=== PATIENT | female | born 1945 | race Caucasian/White ===

== ENCOUNTER 2016-10-13 15:20 | Inpatient (IN) | payer OTHER ==
[~2016-10-13] VITALS: Ht 154.9 cm; Wt 77.6 kg
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
--- NOTE | ~2016-10-13 | EKG ---
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: Shante MADRIGAL : 1945 Requested By: Cristobal Santos Order Number: [id number] MD: Cornelio Higgins Measurements Intervals [place] Rate: 121 P: 82 NM: 158 QRS: 15 QRSD: 79 T: 58 QT: 290 QTc: 412 Interpretive Statements Sinus tachycardia Low voltage, extremity leads No previous ECGs available for comparison Electronically Signed On 10-18-2016 14:10:54 OPTICIANRY TEACHER by Cornelio Higgins [email or web address] <ELECTRONICALLY SIGNED> By: Cornelio Higgins MD, [facility] 10/18/16 1410 20 20 Cornelio Higgins MD, FACC /EPI
--- NOTE | ~2016-10-13 | EKG ---
[place] [address] [facility] [place] [address] ELECTROCARDIOGRAM REPORT Name: BHAVYA VERDE Room #: [facility].R.#: [id number] Admission: Attend Phys: Discharge: Date of : 41 Report #: [id number] THIS REPORT FOR: //name// [facility] ED Test Date: 2016-10-13 Test Time: 15:32:06 Pat Name: BHAVYA VERDE Department: Room: Gender: F Molder Hand: MZOOPanfilo : 1945 Requested By: Juan Vo Order Number: [id number] MD: Chino Delacruz Measurements Intervals [place] Rate: 82 P: 90 AR: 193 QRS: 13 QRSD: 83 T: 65 QT: 352 QTc: 411 Interpretive Statements Sinus rhythm Low voltage, extremity leads No previous ECG available for comparison Electronically Signed On 10-13-2016 16:04:00 COCOA POWDER MIXER OPERATOR by Chino Delacruz [email or web address] <ELECTRONICALLY SIGNED> By: Chino Delacruz MD 10/13/16 1604 1532 1532 Chino Delacruz MD /MIRZA
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
[2016-10-13 15:24] VITALS: BP 141/72
[2016-10-13] MEDS ORDERED: ASPIR 8181 MG PO (15:30)
[2016-10-13 16:39] LABS: ABSOLUTE NEUTROPHILS 11.7 thou/uL (1.4-8.2); BASOPHILS 0.6 % (0.0-2.0); EOSINOPHILS 1.7 % (0.0-3.0); HEMATOCRIT 38.4 % (37.0-47.0); HEMOGLOBIN 12.5 gm/dL (12.0-15.0); LYMPHOCYTES 19.7 % (24.0-44.0); MCH 30.9 pg (26.0-34.0); MCHC 32.5 % (28.0-37.0); MCV 94.9 fL (80.0-100.0); MONOCYTES 7.3 % (1.0-8.0); PLATELET COUNT 370 thou/uL (150-400); POLYS 70.7 % (36.0-66.0); RBC 4.04 mil/uL (4.20-5.00); RDW 13.9 % (10.5-14.5); WBC 16.5 thou/uL (4.0-11.0)
[2016-10-13 16:42] LABS: MANUAL DIFF NO
[2016-10-13 16:45] LABS: ANION GAP 10 mmol/L (7-16); BUN 19 mg/dL (7-18); CALCIUM 9.3 mg/dL (8.5-10.1); CHLORIDE 105 mmol/L (98-107); CO2 27 mmol/L (21-32); CREATININE 1.1 mg/dL (0.6-1.3); GLUCOSE 95 mg/dL (70-99); POTASSIUM 4.1 mmol/L (3.5-5.1); SODIUM 142 mmol/L (136-145)
[2016-10-13 16:58] LABS: ALBUMIN 3.2 g/dL (3.4-5.0); ALKALINE PHOSPHATASE 96 U/L (46-116); MAGNESIUM 1.7 mg/dL (1.8-2.4); SGOT 30 U/L (15-37); SGPT 22 U/L (30-65); TOTAL BILIRUBIN 0.3 mg/dL (<0.1-1.0); TOTAL PROTEIN 7.7 g/dL (6.4-8.2); TROPONIN-I < 0.04 ng/mL (<0.04-0.07)
[2016-10-13 20:12] VITALS: BP 110/57
[2016-10-13 20:25] VITALS: BP 124/61
[2016-10-13 23:52] VITALS: BP 93/61
[2016-10-14 04:19] VITALS: BP 103/63
[2016-10-14 08:24] VITALS: BP 133/75
[2016-10-14 09:00] VITALS: BP 133/75
[2016-10-14 16:01] LABS: HEMATOCRIT 33.2 % (37.0-47.0); HEMOGLOBIN 10.8 gm/dL (12.0-15.0)
[2016-10-14 16:44] VITALS: BP 113/55
[2016-10-14 17:30] VITALS: BP 113/55
[2016-10-14 20:00] VITALS: BP 86/48
[2016-10-15] VITALS: BP 102/56
[2016-10-15 04:00] VITALS: BP 107/60
[2016-10-15 06:09] LABS: ABSOLUTE NEUTROPHILS 10.1 thou/uL (1.4-8.2); BASOPHILS 0.3 % (0.0-2.0); EOSINOPHILS 0.7 % (0.0-3.0); HEMATOCRIT 29.5 % (37.0-47.0); HEMOGLOBIN 9.6 gm/dL (12.0-15.0); LYMPHOCYTES 16.1 % (24.0-44.0); MCH 31.2 pg (26.0-34.0); MCHC 32.5 % (28.0-37.0); MCV 95.9 fL (80.0-100.0); MONOCYTES 6.1 % (1.0-8.0); POLYS 76.8 % (36.0-66.0); RBC 3.08 mil/uL (4.20-5.00); RDW 13.9 % (10.5-14.5); WBC 13.2 thou/uL (4.0-11.0)
[2016-10-15 06:12] LABS: PLATELET COUNT 253 thou/uL (150-400)
[2016-10-15 06:13] LABS: MANUAL DIFF NO
[2016-10-15 06:25] LABS: CALCIUM 8.8 mg/dL (8.5-10.1); CREATININE 0.8 mg/dL (0.6-1.3); MAGNESIUM 1.7 mg/dL (1.8-2.4); POTASSIUM 4.1 mmol/L (3.5-5.1)
[2016-10-15 09:30] VITALS: BP 120/61
[2016-10-15 18:40] VITALS: BP 107/60
[2016-10-16 04:10] VITALS: BP 106/65
[2016-10-16 06:43] LABS: ABSOLUTE NEUTROPHILS 7.2 thou/uL (1.4-8.2); BASOPHILS 0.5 % (0.0-2.0); EOSINOPHILS 1.6 % (0.0-3.0); HEMATOCRIT 31.3 % (37.0-47.0); HEMOGLOBIN 10.2 gm/dL (12.0-15.0); LYMPHOCYTES 20.8 % (24.0-44.0); MCH 31.5 pg (26.0-34.0); MCHC 32.6 % (28.0-37.0); MCV 96.6 fL (80.0-100.0); PLATELET COUNT 258 thou/uL (150-400); POLYS 68.1 % (36.0-66.0); RBC 3.24 mil/uL (4.20-5.00); RDW 13.8 % (10.5-14.5); WBC 10.6 thou/uL (4.0-11.0)
[2016-10-16 06:44] LABS: MANUAL DIFF NO
[2016-10-16 09:13] VITALS: BP 111/60
[2016-10-16 16:28] VITALS: BP 117/66
[2016-10-16 20:38] LABS: ABG SAMPLE TYPE ARTERIAL; BE(vivo) 5.1 mmol/L (-2 to +3); HCO3 31.2 mmol/L (22.0-26.0); LACTATE 1.09 mmol/L (0.5-2.0); O2(CT) 16.7 mL/dL (15.0-23.0); O2Hb 89.3 % (92.0-98.0); PCO2 52.3 mmHg (35.0-45.0); PO2 55.2 mmHg (80.0-100.0); STICK SITE L.RADIAL; pH 7.394 (7.360-7.450); sO2 88.1 % (92.0-98.0); tCO2 32.8 mmol/L (24.0-30.0)
[2016-10-16 21:00] VITALS: BP 148/74
[2016-10-17 00:10] VITALS: BP 126/69
[2016-10-17 05:00] VITALS: BP 135/66
[2016-10-17 07:20] VITALS: BP 138/72
[2016-10-17 12:50] VITALS: BP 110/62
[2016-10-17 17:00] VITALS: BP 123/63
[2016-10-17 19:32] VITALS: BP 101/54
[2016-10-18 04:03] VITALS: BP 111/67
[2016-10-18 08:25] VITALS: BP 124/69
[2016-10-18 11:30] VITALS: BP 101/67
[2016-10-18 15:09] VITALS: BP 124/70
[2016-10-18 21:10] VITALS: BP 106/60
[2016-10-19 05:28] VITALS: BP 119/73
[2016-10-19 05:52] LABS: HEMATOCRIT 32.5 % (37.0-47.0); HEMOGLOBIN 10.7 gm/dL (12.0-15.0); MCHC 32.9 % (28.0-37.0); MCV 97.4 fL (80.0-100.0); PLATELET COUNT 331 thou/uL (150-400); RBC 3.34 mil/uL (4.20-5.00); RDW 13.6 % (10.5-14.5); WBC 8.6 thou/uL (4.0-11.0)
[2016-10-19 06:25] LABS: MANUAL DIFF YES
[2016-10-19 07:26] LABS: CALCIUM 8.8 mg/dL (8.5-10.1); CREATININE 0.6 mg/dL (0.6-1.3); MAGNESIUM 1.9 mg/dL (1.8-2.4); POTASSIUM 3.9 mmol/L (3.5-5.1)
[2016-10-19 07:45] LABS: ABSOLUTE NEUTROPHILS 5.3 thou/uL (1.4-8.2); TOTAL CELL COUNT 100
[2016-10-19 09:05] VITALS: BP 119/67
[2016-10-19 12:28] LABS: HEMATOCRIT 35.2 % (37.0-47.0); HEMOGLOBIN 11.8 gm/dL (12.0-15.0); MCH 32.2 pg (26.0-34.0); MCHC 33.6 % (28.0-37.0); MCV 95.7 fL (80.0-100.0); RBC 3.67 mil/uL (4.20-5.00); RDW 13.3 % (10.5-14.5); WBC 8.9 thou/uL (4.0-11.0)
[2016-10-19 12:35] LABS: CREATININE 0.6 mg/dL (0.6-1.3); POTASSIUM 4.2 mmol/L (3.5-5.1)
[2016-10-19 12:36] LABS: INR 1.1; PROTIME 11.3 Seconds (9.3-11.4)
[2016-10-19 16:00] VITALS: BP 135/76
[2016-10-19 20:07] VITALS: BP 119/68
[2016-10-20 04:40] VITALS: BP 138/77
[2016-10-20 07:49] VITALS: BP 113/71
[2016-10-20 15:55] VITALS: BP 107/61
[2016-10-20 20:40] VITALS: BP 103/51
[2016-10-21 03:13] VITALS: BP 121/65
[2016-10-21 05:34] LABS: HEMATOCRIT 31.7 % (37.0-47.0); HEMOGLOBIN 10.8 gm/dL (12.0-15.0); MCV 94.2 fL (80.0-100.0); PLATELET COUNT 356 thou/uL (150-400); RBC 3.36 mil/uL (4.20-5.00); RDW 13.7 % (10.5-14.5); WBC 9.9 thou/uL (4.0-11.0)
[2016-10-21 05:36] LABS: CALCIUM 8.6 mg/dL (8.5-10.1); CREATININE 0.6 mg/dL (0.6-1.3); POTASSIUM 4.1 mmol/L (3.5-5.1)
[2016-10-21 05:38] LABS: MANUAL DIFF YES
[2016-10-21 06:54] LABS: ABSOLUTE NEUTROPHILS 6.9 thou/uL (1.4-8.2); TOTAL CELL COUNT 100
[2016-10-21 08:55] VITALS: BP 123/69
[2016-10-21 17:40] VITALS: BP 109/64
[2016-10-21 20:00] VITALS: BP 121/68
[2016-10-22 05:15] VITALS: BP 152/86
[2016-10-22 08:50] VITALS: BP 117/68
[2016-10-22] MEDS ORDERED: DUONEB 2.5-0.5 M3 ML INH (10:12)
[2016-10-22] MEDS ORDERED: MIRALAX17 GM PO (10:12)
[2016-10-22] MEDS ORDERED: PROTONIX40 M1 PO (10:12)
[2016-10-22] MEDS ORDERED: ONDANSETRON HCL4 M2 PO (10:12)
[2016-10-22] MEDS ORDERED: ONDANSETRON HCL4 M1 IV PUSH (10:12)
[2016-10-22] MEDS ORDERED: ACETAMINOPHEN325 M1 PO (10:12)
[2016-10-22] MEDS ORDERED: HYDROCODONE-ACE15 ML PO (10:12)
[2016-10-22] MEDS ORDERED: ATIVAN0.5 MG PO (10:12)
[2016-10-22] MEDS ORDERED: LEVAQUIN 500 M500 M5 PO (10:21)
== END 2016-10-22 15:35 | DRG 183 ==
LOC: ER 15:20 → EROBS 19:34 → 3N 19:34 → ER 19:34 → EROBS 19:34 → 3N 20:13
PROVIDERS: Emergency Medicine; Internal Medicine; Internal Medicine Endocrinology, Diabetes & Metabolism; Internal Medicine Pulmonary Disease
DX: S22.20XA Unspecified fracture of sternum, initial encounter for closed fracture (principal); N17.0 Acute kidney failure with tubular necrosis; J18.1 Lobar pneumonia, unspecified organism; J96.02 Acute respiratory failure with hypercapnia; J98.11 Atelectasis; R65.10 Systemic inflammatory response syndrome (SIRS) of non-infectious origin without acute organ dysfunction; K92.0 Hematemesis; R53.81 Other malaise; I10 Essential (primary) hypertension; R40.0 Somnolence; V89.2XXA Person injured in unspecified motor-vehicle accident, traffic, initial encounter; Y93.89 Activity, other specified; Y92.89 Other specified places as the place of occurrence of the external cause; Y99.8 Other external cause status; Z98.890 Other specified postprocedural states; Z88.0 Allergy status to penicillin; Z79.82 Long term (current) use of aspirin; Z79.899 Other long term (current) drug therapy; Z79.891 Long term (current) use of opiate analgesic; Z23 Encounter for immunization; S80.02XA Contusion of left knee, initial encounter; S80.01XA Contusion of right knee, initial encounter

== ENCOUNTER → 2017-12-22 | Outpatient (CLI) | payer OTHER ==
[~2017-12-22] MED LIST: ACETAMINOPHEN325 M1 PO; ASPIR 8181 MG PO; ATIVAN0.5 MG PO; DUONEB 2.5-0.5 M3 ML INH; HYDROCODONE-ACE15 ML PO; LEVAQUIN 500 M500 M5 PO; MIRALAX17 GM PO; ONDANSETRON HCL4 M1 IV PUSH; ONDANSETRON HCL4 M2 PO; PROTONIX40 M1 PO
--- NOTE | ~2017-12-22 | 2DMMODE ---
[facility] [place] [address] 2 D/M-MODE ECHOCARDIOGRAM Name: LEANDER VERDE Room #: REG [facility].#: [id number] Admission: 12/22/17 Attend Phys: Shante Mcadams Discharge: Date of : 41 Date of Service: 12/22/17 1719 Report #: [id number] THIS REPORT FOR: //name// APPROVED REPORT Study performed: 12/22/2017 12:05:14 EXAM: Comprehensive 2D, Doppler, and color-flow Echocardiogram Patient Location: Out-Patient Status: routine BSA: 1.76 HR: 80 bpm BP: 137/90 mmHg Rhythm: NSR Other Information Study Quality: Good Indications Dyspnea Hx: COPD 2D Dimensions RVDd: 31.23 mm LVEF(%): 50.04 (>50%) IVSd: 10.15 (7-11mm) LVOT Diam: 18.88 (18-24mm) LVDd: 35.47 mm PWd: 9.76 (7-11mm) Ascending Ao: 30.05 (22-36mm) LVDs: 26.68 (25-40mm) Aortic Root: 26.28 mm Alvarado's LVEF: 50.04 % Volumes Left Atrial Volume (Systole) Single Plane 4CH: 28.71 mL Single Plane 2CH: 32.26 mL LA ESV Index: 20.00 mL/m2 Aortic Valve AoV Peak Blaise.: 1.76 m/s AO Peak Gr.: 12.39 mmHg LVOT Max P.71 mmHg LVOT Max V: 0.65 m/s AUGUSTINA Vmax: 1.04 cm2 Mitral Valve E/A Ratio: 0.7 [facility] [place] [place] [address] 2 D/M-MODE ECHOCARDIOGRAM Name: LEANDER VERDE Room #: REG [facility].#: [id number] Admission: 12/22/17 Attend Phys: Shante Mcadams Discharge: Date of : 41 Date of Service: 12/22/17 1719 Report #: [id number] MV Decel. Time: 183.57 ms MV E Max Blaise.: 0.98 m/s MV A Blaise.: 1.39 m/s MV PHT: 53.24 ms IVRT: 115.34 ms Pulmonary Valve PV Peak Blaise.: 1.01 m/s PV Peak Gr.: 4.06 mmHg Tricuspid Valve TR Peak Blaise.: 2.83 m/s RAP Estimate: 5.00 mmHg TR Peak Gr.: 32.14 mmHg PA Pressure: 37.00 mmHg Left Ventricle The left ventricle is normal size. There is normal left ventricular wall thickness. The left ventricular systolic function is low normal. LVEF is 50-55%. Grade I - abnormal relaxation pattern. Right Ventricle The right ventricle is normal size. The right ventricular systolic function is normal. Atria The left atrium size is normal. The right atrium size is normal. Aortic Valve The Aortic valve is sclerotic. Trace aortic regurgitation. There is no aortic valvular stenosis. Mitral Valve There is mitral annular calcification. Mitral valve leaflets are mildly thickened nad calcified. Trace mitral regurgitation. No evidence of mitral valve stenosis. Tricuspid Valve The tricuspid valve is normal in structure. Trace to mild tricuspid regurgitation. Pulmonic Valve The pulmonary valve is normal in structure. There is no pulmonic valvular regurgitation. Great Vessels The aortic root is normal in size. The ascending aorta is normal in [facility] [address] [place] [address] 2 D/M-MODE ECHOCARDIOGRAM Name: LEANDER VERDE Room #: REG [facility].#: [id number] Admission: 12/22/17 Attend Phys: Shante Mcadams Discharge: Date of : 41 Date of Service: 12/22/17 1719 Report #: [id number] size. IVC is normal in size and collapses >50% with inspiration. Pericardium There is no pericardial effusion. <Conclusion> The left ventricle is normal size. The left ventricular systolic function is low normal. LVEF is 50-55%. Grade I - abnormal relaxation pattern. The right ventricle is normal size. The left atrium size is normal. The Aortic valve is sclerotic. There is no aortic valvular stenosis. Trace mitral regurgitation. Trace to mild tricuspid regurgitation. The aortic root is normal in size. There is no pericardial effusion. <ELECTRONICALLY SIGNED> By: Kofi Kaiser MD, FACC 12/22/171718 18 18 Kofi Kaiser MD, FACC /INF
== END ==
LOC: CV 12-17 06:59
DX: R06.00 Dyspnea, unspecified (principal); J44.9 Chronic obstructive pulmonary disease, unspecified; I87.2 Venous insufficiency (chronic) (peripheral); F41.9 Anxiety disorder, unspecified

== ENCOUNTER 2020-10-26 05:13 | Inpatient (IN) | payer OTHER ==
[~2020-10-26] VITALS: Ht 157.5 cm; Wt 81.2 kg
--- NOTE | ~2020-10-26 | EMS ---
[place] [address] EMS Patient Care Report Name: LEANDER VERDE Room #: REG MARYA Henning#: [id number] Admission: 10/26/20 Attend Phys: Discharge: Date of : 41 Report #: [id number] THIS REPORT FOR: //name// Report Transmitted: 10/26/2020 05:06 EMS Care Summary [place], [place]/[facility] Incident [id number] @ 10/26/2020 04:36 Incident Location [address] [place] [address] Patient LEANDER VERDE Female, 75 Years 1945 Patient Address [address] [place] [address] Patient History Chronic Obstructive Pulmonary Disease (COPD), Patient Allergies No known allergies, Chief Complaint Severe resp distress Disposition Transported [place] Dispatch Reason Breathing Problem Transported To [facility] Narrative Called for SOB. Upon arrival, pt was PACHECO x 3 sitting on the couch in severe resp distress. Pt only able to speak approx 1 word/breath. Bilateral wheezing present. Pt immediately moved to the EMS cot and loaded into the ambulance w/o incident. Vitals obtained. O2 w/Duo-Neb administered. 18g [place] [address] EMS Patient Care Report Name: LEANDER VERDE Room #: REG Patricia.#: [id number] Admission: 10/26/20 Attend Phys: Discharge: Date of : 41 Report #: [id number] 4 Lead. 125mg Solumedrol. Pt breathing improved, but not enough. She was switched to CPAP and 2nd round of Duo-Neb given. Vitals repeated. En route: pt was doing better. RR to [facility]. Arrived: pt taken to ER #12, pt care & report to ER staff. Initial Vitals @04:55P: 67,SpO2: 84, @04:56P: 143,CO: 1,SpO2: 95, @04:53P: 136,CO: 0,SpO2: 96, @04:47P: 134,R: 48,Pain: 0/10,GCS: 15,SpO2: 78, @05:06P: 148,CO: 1,SpO2: 85, @05:08P: 110,R: 40,BP: 75/27,Pain: 0/10,GCS: 15,Glucose: 113,CO: 4,SpO2: 95,Revised Trauma: 9,AL Suspected: false Assessments @04:44MENTAL:Person Oriented,Time Oriented,Event Oriented,Place Oriented,SKIN:Diaphoresis,HEENT:LUNG SOUNDS:General: Nausea,ABDOMEN:General: Nausea,PELVIS//GI:EXTREMITIES:Right Leg: Edema,Left Leg: Edema,Left Arm: No Abnormalities,Right Arm: No Abnormalities,PULSE:Radial: 2+ Normal,NEURO:No Abnormalities, Impression Acute Respiratory Distress (Dyspnea) Procedures @04:44ALS AssessmentResponse: UnchangedSucceeded@04:49Oxygen FlowRate: 8 Device: Nebulizer Response: ImprovedSucceeded@05:00CPAP FlowRate: 10 Response: ImprovedSucceeded@04:52Saline Lock 25cc (18 ga) Site: Antecubital-LeftResponse: UnchangedSucceeded@04:543-Lead ECGResponse: UnchangedSucceeded@04:47StretcherResponse: Unchanged@04:49Atrovent - 0.5 Milligrams (mg) - NebulizedResponse: Improved@05:05Atrovent - 0.5 Milligrams (mg) - NebulizedResponse: Improved@05:05Albuterol - 5 Milligrams (mg) - NebulizedResponse: Improved@04:49Albuterol - 5 Milligrams (mg) - NebulizedResponse: Improved@04:55Solu-Medrol - 125 Milligrams (mg) - Intravenous (IV)Response: Improved Timeline 04:34,Call Received 04:34,Dispatch Notified 04:36,Dispatched 04:38,En Route 04:43,On Scene 04:44,At Patient 04:44,ALS Assessment,Response: UnchangedSucceeded, 04:47,BP: / M,PULSE: 134,RR: 48 R,SPO2: 78 Ox,ETCO2: ,BG: ,PAIN: 0,GCS: 15, 04:47,Stretcher,Response: Unchanged [address] [address] EMS Patient Care Report Name: LEANDER VERDE Room #: REG [facility]#: [id number] Admission: 10/26/20 Attend Phys: Discharge: Date of : 41 Report #: [id number] 04:49,Atrovent - 0.5 Milligrams (mg) - Nebulized,Response: Improved 04:49,Oxygen FlowRate: 8 Device: Nebulizer Response: ImprovedSucceeded, 04:49,Albuterol - 5 Milligrams (mg) - Nebulized,Response: Improved 04:52,Saline Lock 25cc 18 ga Site: Antecubital-Left,Response: UnchangedSucceeded, 04:53,BP: / M,PULSE: 136,RR: R,SPO2: 96 Ox,ETCO2: ,BG: ,PAIN: ,GCS: , 04:54,3-Lead ECG,Response: UnchangedSucceeded, 04:55,BP: / M,PULSE: 67,RR: R,SPO2: 84 Ox,ETCO2: ,BG: ,PAIN: ,GCS: , 04:55,Solu-Medrol - 125 Milligrams (mg) - Intravenous (IV),Response: Improved 04:56,BP: / M,PULSE: 143,RR: R,SPO2: 95 Ox,ETCO2: ,BG: ,PAIN: ,GCS: , 05:00,CPAP FlowRate: 10 Response: ImprovedSucceeded, 05:05,Atrovent - 0.5 Milligrams (mg) - Nebulized,Response: Improved 05:05,Albuterol - 5 Milligrams (mg) - Nebulized,Response: Improved 05:06,BP: / M,PULSE: 148,RR: R,SPO2: 85 Ox,ETCO2: ,BG: ,PAIN: ,GCS: , 05:08,Depart Scene 05:08,BP: 75/27 M,PULSE: 110,RR: 40 R,SPO2: 95 Ox,ETCO2: ,B,PAIN: 0,GCS: 15, 05:09,At Destination 05:19,Call Closed Disclaimer v1.1 Copyright 2020 [employer] This EMS Care Summary contains data elements from the applicable legal record (which may be displayed differently). It is designed to provide pertinent information for the following purposes: continuity of care, clinical quality, and state data reporting. The complete legal record is available to ED staff and administrators of the receiving hospital in [facility]'s Patient Tracker. All data is provided "as is."
[2020-10-26 05:16] VITALS: BP 149/83
[2020-10-26 05:37] LABS: ABSOLUTE NEUTROPHILS 14.6 thou/uL (1.4-8.2); EOSINOPHILS 0.5 % (0.0-3.0); HEMATOCRIT 43.1 % (37.0-47.0); HEMOGLOBIN 13.9 gm/dL (12.0-15.0); LYMPHOCYTES 20.3 % (24.0-44.0); MCH 31.6 pg (26.0-34.0); MCHC 32.3 g/dL (28.0-37.0); MCV 97.6 fL (80.0-100.0); MONOCYTES 3.6 % (1.0-8.0); PLATELET COUNT 328 thou/uL (150-400); POLYS 74.6 % (36.0-66.0); RBC 4.41 mil/uL (4.20-5.00); RDW 14.6 % (10.5-14.5); WBC 19.6 thou/uL (4.0-11.0)
[2020-10-26 05:41] LABS: ANION GAP 9 mmol/L (7-16); BUN 19 mg/dL (7-18); CALCIUM 9.6 mg/dL (8.5-10.1); CHLORIDE 100 mmol/L (98-107); CO2 32 mmol/L (21-32); CREATININE 1.2 mg/dL (0.6-1.0); GLUCOSE 108 mg/dL (74-106); POTASSIUM 3.4 mmol/L (3.5-5.1); SODIUM 141 mmol/L (136-145)
[2020-10-26 05:51] LABS: ALBUMIN 3.7 g/dL (3.4-5.0); SGOT 27 U/L (15-37); SGPT 23 U/L (14-59); TOTAL BILIRUBIN 0.7 mg/dL (0.2-1.0); TOTAL PROTEIN 7.8 g/dL (6.4-8.2); TROPONIN-I <0.06 ng/mL (<0.06)
[2020-10-26] MEDS ORDERED: PREDNISONE 5 MG5 MG (05:54)
[2020-10-26] MEDS ORDERED: TORSEMIDE10 MG (05:55)
[2020-10-26 06:57] LABS: HCO3 29.3 mmol/L (22.0-26.0); PCO2 41.6 mmHg (35.0-45.0); pH 7.465 (7.360-7.450); sO2 99.5 % (92.0-98.0)
[2020-10-26 07:10] LABS: URINE BILIRUBIN NEGATIVE (Negative); URINE BLOOD 2+ (Negative); URINE CLARITY CLEAR; URINE COLOR YELLOW; URINE GLUCOSE-RANDOM* NEGATIVE (Negative); URINE KETONES NEGATIVE (Negative); URINE LEUKOCYTES-REFLEX 1+ (Negative); URINE NITRITE-REFLEX POSITIVE (Negative); URINE PROTEIN (DIPSTICK) NEGATIVE (Negative); URINE SPECIFIC GRAVITY 1.025 (1.005-1.035); URINE UROBILINOGEN 0.2 E.U./dl (0.2-1.0)
[2020-10-26 07:25] LABS: HYALINE CASTS 0-3 Few /LPF (None Seen); MUCUS >6 Heavy strn/LPF (None Seen); SQUAMOUS 4-10 Moderate /LPF (0-3)
[2020-10-26 07:26] LABS: BACTERIA-REFLEX >30 Many /HPF (None Seen); CRYSTALS None Seen /LPF (None Seen); URINE RBC 0-2 Rare /HPF (0-2); URINE WBC-REFLEX 6-15 Few /HPF (0-5)
[2020-10-26 12:11] VITALS: BP 97/53
[2020-10-26 19:45] VITALS: BP 118/68
[2020-10-27] MEDS ORDERED: ATIVAN0.5 M1 PO (02:06)
[2020-10-27] MEDS ORDERED: DEMADEX20 MG PO (04:01)
[2020-10-27] MEDS ORDERED: PREDNISONE 10 M10 M1 PO (04:02)
[2020-10-27 07:31] VITALS: BP 126/71
[2020-10-27 07:36] LABS: HEMATOCRIT 37.3 % (37.0-47.0); MCHC 31.3 g/dL (28.0-37.0); MCV 99.2 fL (80.0-100.0); RBC 3.76 mil/uL (4.20-5.00); RDW 14.6 % (10.5-14.5); WBC 18.7 thou/uL (4.0-11.0)
[2020-10-27 07:43] LABS: HEMOGLOBIN 11.7 gm/dL (12.0-15.0)
[2020-10-27 07:46] LABS: CALCIUM 9.2 mg/dL (8.5-10.1); CREATININE 0.9 mg/dL (0.6-1.0); POTASSIUM 4.2 mmol/L (3.5-5.1)
--- NOTE | 2020-10-27 10:41 | HC ---
[facility] [place] [address] CONSULTATION Name: LEANDER VERDE Room #: 170-12 ADM IN M.R.#: [id number] Admission: 10/26/20 Attend Phys: Dick Avila MD Discharge: Date of : 41 Report #: [id number] THIS REPORT FOR: cc: Lonnie James MD, Lirio U. MD Barry, Joseph W. MD ~ DATE OF SERVICE: 10/26/2020 INFECTIOUS DISEASE CONSULTATION ATTENDING PHYSICIAN: Dr. Avila. REASON FOR EVALUATION: Pneumonitis complicated by respiratory failure. HISTORY OF SUBJECTIVE: Chart reviewed, the patient examined. This is a 75-year-old female with history of chronic obstructive pulmonary disease, who presented to the Emergency Room with complaints of dyspnea. She had developed fairly quickly with acute shortness of breath. She was found to be hypoxemia with saturations in the 70s on room air. This prompted evaluation in the Emergency Room. She was placed on BiPAP. Subsequently, has been able to wean off down to nasal cannula at 5 liters per minute. Of note, she was diagnosed with COVID back in latter part of July 2020 and notably is still coronavirus PCR positive. It is not clear if she had systemic illness. Denies any fevers. She has had some anorexia with poor p.o. intake, perhaps not directly related to this. Of note, about a month ago, had extensive which she thought was vaginal bleeding soiled a number of towels and she now has fairly predictable, although somewhat cyclic lower abdominal pain occurs later in the evening. She describes as cramping in character. Notably, she is not particularly anemic. Lactic acid initially was 3.1. D-dimer was elevated at 12.2. She did undergo CT of the chest, showed no evidence of PE, did have dense consolidation of the posterior lingula and left lower lobe, perhaps more typical of bacterial etiology. Urinalysis showed 6-15 white cells. She is empirically started on therapy with azithromycin and ceftriaxone. ALLERGIES: PENICILLINS. CURRENT MEDICATIONS: Include dexamethasone, thiamine, famotidine, ceftriaxone, enoxaparin, ascorbic acid, zinc sulfate, cholecalciferol, azithromycin, ondansetron. PAST MEDICAL HISTORY: Known COPD, splenectomy. SOCIAL HISTORY: Nonsmoker, no ethanol, no illicit drug use. FAMILY HISTORY: Noncontributory. [address] [address] CONSULTATION Name: LEANDER VERDE Room #: 17012 ADM IN M.R.#: [id number] Admission: 10/26/20 Attend Phys: Dick Avila MD Discharge: Date of : 41 Report #: [id number] REVIEW OF SYSTEMS: Otherwise unremarkable, except noted the above. PHYSICAL EXAMINATION: GENERAL: She appears chronically ill, undernourished. VITAL SIGNS: Temperature 97.4, pulse 90, respirations 15, blood pressure 106/60. SKIN: Warm, dry, no rashes. HEENT: Normocephalic. Extraocular muscles intact. NECK: Supple. Nasal cannula in place. LUNGS: Diminished breath sounds. Does have some coarse basilar particularly on the left. ABDOMEN: Mildly distended, tenderness in lower quadrant. GENITOURINARY AND RECTAL: Deferred. LABORATORY DATA: Lactic acid followup down from 3.1 to 2.2. Coronavirus PCR was negative, although antigen was positive. Chest x-ray followup showed dense consolidation in left lower lobe. Her UA, 6-15 white cells, greater than 30 bacteria. CBC: White count of 19.6 in part due to the splenectomy, platelet count of 328, H 13.9 and 43.1. Electrolytes: Sodium 141, potassium ____, chloride 100, bicarbonate is 32, anion gap of 9, BUN and creatinine 19 and 1.2. LFTs unremarkable. Albumin 3.7, total protein 7.8. ASSESSMENT: Pneumonitis, complicated by respiratory failure. The patient had COVID several months ago, has persistently positive PCR. I think the way the evidence favors more of an acute issue and likely perhaps aspiration complicated by now secondary bacterial pneumonitis. We will adjust antimicrobial therapy, do additional diagnostic testing. We will actually image her abdomen and pelvis to evaluate whether there is some occult process associated with the abdominal pain and unexplained bleeding at this point. At this point, she is not overtly toxic, but she does appear chronically ill. We will monitor expectantly support as needed including oxygen therapy. We will add incentive spirometry. <ELECTRONICALLY SIGNED> By: Arturo Linn MD 10/27/20 1041 [id number] 36 Arturo Linn MD /nt
[2020-10-27 12:35] VITALS: BP 134/74
--- NOTE | 2020-10-27 12:43 | EKG ---
[address] [place] [address] ELECTROCARDIOGRAM REPORT Name: LEANDER VERDE Room #: 170-12 ADM IN M.R.#: [id number] Admission: 10/26/20 Attend Phys: Dick Avila MD Discharge: Date of : 41 Report #: [id number] [facility] ED Test Date: 2020-10-26 Test Time: 05:32:51 Pat Name: LEANDER VERDE Department: Room: 170 Gender: F [employer]: prema lugo : 1945 Requested By: Lonnie Garcia Order Number: [id number] MD: Cornelio Higgins Measurements Intervals [place] Rate: 131 P: 72 ME: 148 QRS: 3 QRSD: 81 T: 32 QT: 295 QTc: 436 Interpretive Statements Sinus tachycardia Borderline low voltage, extremity leads Poor R wave progression Compared to ECG 10/16/2016 20:21:17 No significant change was found Electronically Signed On 10-27-2020 12:43:13 CARD SCRAPER by Cornelio Higgins [email or web address] <ELECTRONICALLY SIGNED> By: Cornelio Higgins MD, [facility] 10/27/20 1243 Cornelio Higgins MD, [facility] /EPI
[2020-10-27 17:46] VITALS: BP 130/72
[2020-10-28] VITALS (8 sets, daily range): BP systolic 118–143; BP diastolic 50–83
[2020-10-28 07:47] LABS: HEMATOCRIT 34.9 % (37.0-47.0); HEMOGLOBIN 11.1 gm/dL (12.0-15.0); MCHC 31.7 g/dL (28.0-37.0); MCV 97.8 fL (80.0-100.0); RBC 3.57 mil/uL (4.20-5.00); WBC 15.5 thou/uL (4.0-11.0)
[2020-10-28 08:03] LABS: CALCIUM 9.3 mg/dL (8.5-10.1); CREATININE 0.8 mg/dL (0.6-1.0); POTASSIUM 4.3 mmol/L (3.5-5.1)
[2020-10-29 05:20] VITALS: BP 108/57
[2020-10-29 05:50] LABS: HEMATOCRIT 34.7 % (37.0-47.0); MCH 31.2 pg (26.0-34.0); MCHC 31.7 g/dL (28.0-37.0); MCV 98.1 fL (80.0-100.0); RBC 3.53 mil/uL (4.20-5.00); RDW 14.6 % (10.5-14.5); WBC 11.4 thou/uL (4.0-11.0)
[2020-10-29 05:58] LABS: CALCIUM 9.1 mg/dL (8.5-10.1); CREATININE 0.9 mg/dL (0.6-1.0); POTASSIUM 3.9 mmol/L (3.5-5.1)
[2020-10-29 07:30] VITALS: BP 107/63
[2020-10-29 15:16] VITALS: BP 103/43
[2020-10-29 19:35] VITALS: BP 101/50
[2020-10-30 03:50] VITALS: BP 109/46
[2020-10-30 15:49] VITALS: BP 112/61
[2020-10-30 19:28] VITALS: BP 124/64
[2020-10-31 07:51] VITALS: BP 128/63
[2020-10-31 09:26] VITALS: BP 128/63
[2020-10-31] MEDS ORDERED: VITAMIN D325 MC1 PO (11:22)
[2020-10-31] MEDS ORDERED: ZINC SULFATE 2220 MG PO (11:22)
[2020-10-31] MEDS ORDERED: CEFDINIR300 MG PO (11:22)
[2020-10-31] MEDS ORDERED: VITCB500GO PO (11:22)
[2020-10-31 11:53] VITALS: BP 128/63
== END 2020-10-31 12:58 | disposition home health service (06) | DRG 871 ==
LOC: ER 05:13 → 3W 07:59 → EROBS 07:59 → 3W 10-28 19:45
PROVIDERS: Emergency Medicine; Internal Medicine Pulmonary Disease; ADMIT Hospitalist; ATTEND Hospitalist
DX: A41.89 Other specified sepsis (principal); U07.1 COVID-19; J96.01 Acute respiratory failure with hypoxia; J12.82 Pneumonia due to coronavirus disease 2019; J15.6 Pneumonia due to other Gram-negative bacteria; N39.0 Urinary tract infection, site not specified; J44.0 Chronic obstructive pulmonary disease with (acute) lower respiratory infection; B96.20 Unspecified Escherichia coli [E. coli] as the cause of diseases classified elsewhere; E66.01 Morbid (severe) obesity due to excess calories; M06.9 Rheumatoid arthritis, unspecified; Z68.32 Body mass index [BMI] 32.0-32.9, adult; Z79.82 Long term (current) use of aspirin; Z90.81 Acquired absence of spleen; Z88.0 Allergy status to penicillin; Z79.899 Other long term (current) drug therapy
CPT/HCPCS: 10080

== ENCOUNTER 2021-03-16 10:54 | Inpatient (IN) | payer OTHER ==
[~2021-03-16] VITALS: Ht 154.9 cm; Wt 63.5 kg
[~2021-03-16 10:54] MED LIST changes: +ATIVAN0.5 M1 PO; +CEFDINIR300 MG PO; +DEMADEX20 MG PO; +PREDNISONE 10 M10 M1 PO; +PREDNISONE 5 MG5 MG; +TORSEMIDE10 MG; +VITAMIN D325 MC1 PO; +VITCB500GO PO; +ZINC SULFATE 2220 MG PO
[2021-03-16 10:55] VITALS: BP 128/68
[2021-03-16 12:14] LABS: URINE BLOOD 1+ (Negative); URINE COLOR YELLOW; URINE GLUCOSE-RANDOM* NEGATIVE (Negative); URINE KETONES 1+ (Negative); URINE NITRITE-REFLEX NEGATIVE (Negative); URINE PROTEIN (DIPSTICK) NEGATIVE (Negative); URINE SPECIFIC GRAVITY 1.015 (1.005-1.035)
[2021-03-16 12:23] LABS: ANION GAP 9 mmol/L (7-16); BUN 10 mg/dL (7-18); CALCIUM 9.2 mg/dL (8.5-10.1); CHLORIDE 99 mmol/L (98-107); CO2 34 mmol/L (21-32); GLUCOSE 100 mg/dL (74-106); POTASSIUM 3.2 mmol/L (3.5-5.1); SODIUM 142 mmol/L (136-145)
[2021-03-16 12:24] LABS: URINE CLARITY HAZY; URINE LEUKOCYTES-REFLEX 3+ (Negative)
[2021-03-16 12:26] LABS: ABSOLUTE NEUTROPHILS 11.5 thou/uL (1.4-8.2); BASOPHILS 0.8 % (0.0-2.0); EOSINOPHILS 0.3 % (0.0-3.0); HEMATOCRIT 41.1 % (37.0-47.0); HEMOGLOBIN 13.6 gm/dL (12.0-15.0); LYMPHOCYTES 12.9 % (24.0-44.0); MCH 31.4 pg (26.0-34.0); MCHC 33.2 g/dL (28.0-37.0); MCV 94.8 fL (80.0-100.0); MONOCYTES 9.4 % (1.0-8.0); PLATELET COUNT 376 thou/uL (150-400); POLYS 76.6 % (36.0-66.0); RBC 4.33 mil/uL (4.20-5.00); RDW 14.8 % (10.5-14.5)
[2021-03-16 12:28] LABS: ICTOTEST (BILI CONFIRMATORY) Negative (Negative); URINE BILIRUBIN NEGATIVE (Negative)
[2021-03-16 12:33] LABS: ALBUMIN 2.7 g/dL (3.4-5.0); LIPASE 64 U/L (73-393); MAGNESIUM 1.9 mg/dL (1.8-2.4); SGOT 21 U/L (15-37); SGPT 18 U/L (14-59); TOTAL BILIRUBIN 0.8 mg/dL (0.2-1.0); TOTAL PROTEIN 6.8 g/dL (6.4-8.2); TROPONIN-I <0.06 ng/mL (<0.06)
[2021-03-16 13:18] LABS: CASTS None Seen /LPF (None Seen); SQUAMOUS 0-3 Few /LPF (0-3)
[2021-03-16 13:19] LABS: CRYSTALS None Seen /LPF (None Seen); URINE RBC 3-10 Few /HPF (NONE SEEN); URINE WBC-REFLEX >25 Many /HPF (0-5)
--- NOTE | 2021-03-16 17:12 | NUR ---
CALL TO DR DUMONT AND DISCUSSED PT INABILITY TO SWALLOW PILLS
[2021-03-16 20:59] VITALS: BP 100/64
--- NOTE | 2021-03-16 21:06 | NUR ---
Called to give report but there was no answer, phone rang over 5 minutes
[2021-03-16 21:23] VITALS: BP 106/65
[2021-03-16 22:00] VITALS: BP 124/59
[2021-03-16 22:58] VITALS: BP 124/59
[2021-03-17 04:13] VITALS: BP 105/54
[2021-03-17 05:11] LABS: ABSOLUTE NEUTROPHILS 7.8 thou/uL (1.4-8.2); HEMATOCRIT 36.8 % (37.0-47.0); HEMOGLOBIN 12.2 gm/dL (12.0-15.0); LYMPHOCYTES 12.4 % (24.0-44.0); MCH 31.8 pg (26.0-34.0); MCHC 33.1 g/dL (28.0-37.0); MCV 96.1 fL (80.0-100.0); MONOCYTES 4.6 % (1.0-8.0); PLATELET COUNT 321 thou/uL (150-400); RBC 3.83 mil/uL (4.20-5.00); RDW 14.5 % (10.5-14.5); WBC 9.5 thou/uL (4.0-11.0)
[2021-03-17 05:24] LABS: APTT 25.6 Seconds (24.5-32.8); INR 1.09; PROTIME 11.8 Seconds (10.5-12.1)
[2021-03-17 05:37] LABS: CALCIUM 8.5 mg/dL (8.5-10.1); CREATININE 0.7 mg/dL (0.6-1.0); MAGNESIUM 1.9 mg/dL (1.8-2.4); POTASSIUM 3.7 mmol/L (3.5-5.1); TOTAL BILIRUBIN 0.5 mg/dL (0.2-1.0); TOTAL PROTEIN 5.6 g/dL (6.4-8.2)
--- NOTE | 2021-03-17 06:50 | NUR ---
PT ARRIVED TO UNIT APPROX 2200, CONSENTS OBTAINED, ADMISSION PACKET PROVIDED. PT AOX4, NOTABLY LETHARGIC. PT REPORTS 7-10/10 PAIN IN ABDOMEN AND BLE. PT RECEIVING PRN IV MORPHINE Q4HR. PT DENIES SOB WHILE ON 2L O2 VIA NC. PT TOLERATING PO INTAKE OF FLUIDS WITHOUT ISSUE. PT WITH INTERMITTENT NAUSEA, NO EMESIS NOTED. PT RESTING IN BED THROUGHOUT SHIFT, FREQUENT REPOSITIONING ENCOURAGED, PT NOTED TO SHIFT INDEPENDENTLY. PT INCONTINENT OF BLADDER. OPEN SORE NOTED TO RIGHT BUTTOCKS, BARRIER CREAM APPLIED. PT REFUSING ADMISSION PICTURE OF WOUND, REQUESTING AT LATER TIME WHEN ABDOMINAL PAIN NOT SEVERE. PT WITHOUT RELIEF WITH PRN IV MORPHINE Q4HR. ONCASH MOLD CLOSER HELPER NOTIFIED, EMAR UPDATED. PT RECEIVING PRN PO NORCO Q4HR. PT ENCOURAGED TO NOTIFY STAFF FOR ALL NEEDS, CALL LIGHT WITHIN REACH, BED ALARM ON, BED LOCKED IN LOWEST POSITION, FREQUENT MONITORING WILL CONTINUE. UPON ROUNDING, PT TEARFUL, REQUESTING ADMINISTRATION OF ATIVAN, ONCASH MOLD CLOSER HELPER NOTIFIED, RECEIVED APPROVAL TO ADMINISTER EARLY. FREQUENT MONITORING WILL CONTINUE.
--- NOTE | 2021-03-17 07:17 | EKG ---
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1945 Requested By: Demi Joy Order Number: [id number] MD: Esteban Garza Measurements Intervals [place] Rate: 115 P: 83 OK: 157 QRS: -36 QRSD: 81 T: 58 QT: 331 QTc: 458 Interpretive Statements Sinus tachycardia Probable left ventricular hypertrophy Inferior infarct, old Anterior Q waves, possibly due to LVH Compared to ECG 10/26/2020 05:32:51 Myocardial infarct finding now present Left ventricular hypertrophy now present Q waves now present Poor R-wave progression no longer present Electronically Signed On 03-17-2021 7:17:01 CDT by Esteban Garza [email or web address] <ELECTRONICALLY SIGNED> By: Esteban Garza MD, [facility] 03/17/21 0717 11 11 Esteban Garza MD, [facility] /EPI
--- NOTE | 2021-03-17 09:37 | NUR ---
WOUND CONSULT; A PRESSURE VS SHEARING INJURY WAS IDENTIFIED ON ADMISSION. APPROX. 2 X 2 X 0.1 THERE IS NO S/S OF INFECTION. NO DRAINAGE SEEN. NO S/S OF INFECTION. THE PATIENT CAN TURN HERSELF AT THIS POINT. RECOMMENDATIONS; -ADD A LOW AIR LOSS BED PUMP. -APPLY ZGUARD BID. DISCUSSED WITH RALPH.
--- NOTE | 2021-03-17 19:57 | NUR ---
ASSUMED PT CARE THIS AM. PT IS ALERT & ORIENTED X4. PT HAS IV SITE ON L AC AND R HAND. PT IS ON TELE MONITOR. INFORMED DR ABOUT PT DIET THIS MORNING. PT IS ON O2 2L NC. PT HAS WOUND ON L BUTTOCK. NO C/O OF NAUSEA AND VOMITING DURING THE SHIFT. PT C/O OF PAIN ON THE ABDOMEN AND BEEN CRYING DUE TO PAIN. GIVEN PAIN MEDICATION PER PT REQUEST. PT HAS LOW AIR LOSS BED PUMP. PT AT THE BEDSIDE THIS AFTERNOON. PT ON THE BED WATCHING TV, BED ON THE LOWEST POSITION, SIDE RAILS UP, CALL LIGHT WITHIN REACH. WILL CONTINUE TO MONITOR PT. FOLLOW POC.
[2021-03-17 20:27] VITALS: BP 111/68
--- NOTE | 2021-03-18 02:48 | NUR ---
RECEIVED PT LYING IN HER BED TEARFUL AND STATING SHE WAS IN SEVERE PAIN IN HER ABDOMEN. IMMEDIATELY GAVE HER PRESCRIBED PRN PAIN MEDICATION AND A WARM BLANKET FOR HER ABDOMEN. SHE IS ON 2 LITERS O2 NC WITH SOA WITH EXERTION. SR/ST ON THE MONITOR. INCONTINENT OF BOWEL AND BLADDER. SCANT VAGINAL BLEEDING NOTED WITH PAD CHANGES. ZGUARD APPLIED TO BOTTOM DIRECTED. PT APPEARS DEPRESSED AND HAS STATED SHE FEELS SCARED AND UNEASY. NURSE SAT WITH HER FOR A WHILE FOR COMFORT. PARTIAL RELIEF NOTED AFTER PAIN MEDICATION PROVIDED. PT HAS NOT SLEPT MUCH. AT THIS TIME SHE IS LYING IN HER BED AND APPEARS TO BE WATCHING TV. FALL PRECAUTIONS IN PLACE, CALL LIGHT IS WITHIN REACH. WILL CONTINUE TO [facility].
[2021-03-18 07:32] VITALS: BP 109/55
--- NOTE | 2021-03-18 14:22 | NUR ---
PT ADMITTED RELATED TO UTERINE MASS, PNEUMONITIS, AND UTI. CM REVIEWED CHART AND SPOKE WITH CARE TEAM. CM MET WITH PT AT BEDSIDE YESTERDAY. SHE APPEARED TO BE A&O X4. CM ROLE INTRODUCED. PT INDICATED SHE RESIDES IN AN APARTMENT WITH HER SPOUSE WITH NO STEPS TO ENTER AND STEPS TO BASEMENT. PT INDICATED SHE HAS A 4WW AND A INOGEN PORTABLE O2 CONCENTRATOR FOR HOME USE. PT INDICATED THAT HER PCP IS DR. BENÍTEZ. PT HAD BIOPSY DONE THIS DAY. CARE TEAM HAVE INDICATED THAT PT MAY BE MEDICALLY STABLE TO DC HOME TOMORROW AND FOLLOW UP OP ONCE BIOPSY RESULTS ARE BACK. CM TO FOLLOW INDICATED WITH DC PLANNING.
[2021-03-18 15:58] VITALS: BP 92/56
--- NOTE | 2021-03-18 18:33 | NUR ---
Assumed pt care at 7am.Pt left per wc to 4n for pelvic exam and biopsy. Returned around 0730.Assessment completed. vss.Am meds given as ordered. Pt constantly asking for pain.Adair given with no relief.Pt prefered iv pain shot but it has been dc'd. Dr Stallworth notified order noted.Family here to visit, updates given.Will continue to monitor.
[2021-03-18 20:18] VITALS: BP 107/61
[2021-03-19 05:44] LABS: HEMATOCRIT 33.1 % (37.0-47.0); HEMOGLOBIN 10.7 gm/dL (12.0-15.0); MCH 31.1 pg (26.0-34.0); MCHC 32.4 g/dL (28.0-37.0); RBC 3.44 mil/uL (4.20-5.00); RDW 14.9 % (10.5-14.5); WBC 12.7 thou/uL (4.0-11.0)
--- NOTE | 2021-03-19 07:13 | NUR ---
Assumed pt care at 1900. A/OX4,VSS. C/o uterus/vaginal pain medicated per EMAR with relief reported. Incontinent of bladder with slight bleeding noted,small clot reported by LUNG GUN OPERATOR. SR on telemetry. Fall precautions in place,calls approp for help.
[2021-03-19 07:43] VITALS: BP 102/56
[2021-03-19] MEDS ORDERED: TRAMADOL 50 MG50 MG PO (10:01)
[2021-03-19] MEDS ORDERED: LEVOFLOXACIN500 MG PO (10:01)
[2021-03-19 11:04] VITALS: BP 102/56
[2021-03-19 11:29] VITALS: BP 102/56
--- NOTE | 2021-03-19 11:48 | NUR ---
CARE TEAM INDICATED THAT PT IS MEDICALLY STABLE TO DC HOME THIS DAY. THEY ARE RECOMMENDING HH UPON DC. CM MET WITH PT AND SPOUSE AT BEDSIDE THIS DAY. PT HAD [facility] HH IN OCT OF THIS YEAR. PT INDICATED SHE WOULD WANT TO USE THEM AGAIN. CM FAXED REFERRAL TO [facility] AND NOTIFIED LIAISON OF REFERRAL. PT'S DTR PTO TRANSPORT PT AND SPOUSE HOME THIS DAY. NO OTHER CM INTERVENTION INDICATED. CASE CLOSED.
--- NOTE | 2021-03-19 13:24 | NUR ---
Assumed pt care at 7am.Assessment completed.vss. Pt tolerated meds and diet. Dr Stallworth here,dc order noted. patient case coordinator assisted with home health setup for pt dc home.Dc summary compile and reviewed with pt and dtr. Rx given with copy of dc summary.Saline lock dc'd.At 1300,pt dc with dtr in wc accompanied by salvage winder.
--- NOTE | 2021-03-20 19:07 | PATH ---
[facility] [address] [place] [address] PATHOLOGY RPT PROCEDURE Name: ROSA MARIA VERDE Room #: 463-P DIS IN M.R.#: [id number] Admission: 03/16/21 Date of : 41 Discharge: 03/19/21 Report #: [id number] Path Case #: [id number] [facility] Accession Number: [id number] . 01 Material submitted: . endometrium - ENDOMETRIAL BIOPSY . 01 Clinical history: . VAGINAL BLEEDING,N/V . 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 (IUV:pit; 03/20/2021) QTP 03/20/2021 1513 Local . 02 Comment: Dr. Kristian Pepper has seen a telephone sales representative slide of this case and concurs with my diagnosis. . Findings of this case are communicated to Dr. Brown in the evening of 03/20/2021 (IUV:pit; 03/20/2021) . 02 Electronically signed: . Thi Hernández MD, Pathologist NPI- [id number] . 01 Gross description: . Received in formalin labeled "Rosa Maria Verde, endometrial bx" is a 1.5 x 1.0 x 0.2 cm aggregate of red-brown friable soft tissue fragments. The specimen is submitted entirely in A1. (KATIE; 03/19/2021) KATEI/KATIE 03/19/2021 1748 Local . 02 Pathologist provided ICD-10: C54.1 . 02 CPT . 387011 Specimen Comment: A courtesy copy of this report has been sent to [phone] Specimen Comment: [phone] Specimen Comment: Report sent to / DR BROWN Performed at: [address], [place] [id number] MD Kristian Pepper MD Phone: [phone] [address] [address] PATHOLOGY RPT PROCEDURE Name: ROSA MARIA VERDE Room #: 463-P DIS IN M.R.#: [id number] Admission: 03/16/21 Date of : 41 Discharge: 03/19/21 Report #: [id number] Path Case #: [id number] Performed at: [address] [facility] [address] [id number] MD Thi Hernández MD Phone: [phone]
== END 2021-03-19 13:01 | disposition home health service (06) | DRG 853 ==
LOC: ER 10:54 → EROBS 14:01 → 4W 21:47
PROVIDERS: Hospitalist; Physician Assistant; ADMIT Internal Medicine; ATTEND Internal Medicine
PROC: 0UDB7ZX Extraction of Endometrium, Via Natural or Artificial Opening, Diagnostic (ICD-10-PCS; principal; 2021-03-18)
DX: A41.9 Sepsis, unspecified organism (principal); J96.01 Acute respiratory failure with hypoxia; E43 Unspecified severe protein-calorie malnutrition; N39.0 Urinary tract infection, site not specified; C54.1 Malignant neoplasm of endometrium; N95.0 Postmenopausal bleeding; N85.9 Noninflammatory disorder of uterus, unspecified; N93.8 Other specified abnormal uterine and vaginal bleeding; R31.9 Hematuria, unspecified; R00.0 Tachycardia, unspecified; E66.01 Morbid (severe) obesity due to excess calories; B96.4 Proteus (mirabilis) (morganii) as the cause of diseases classified elsewhere; Z20.822 Contact with and (suspected) exposure to COVID-19; Z90.81 Acquired absence of spleen; Z87.01 Personal history of pneumonia (recurrent); Z90.49 Acquired absence of other specified parts of digestive tract; Z88.0 Allergy status to penicillin; Z87.891 Personal history of nicotine dependence; Z86.16 Personal history of COVID-19; Z68.26 Body mass index [BMI] 26.0-26.9, adult
CPT/HCPCS: 10045

== ENCOUNTER → 2021-06-11 | Outpatient (CLI) | payer OTHER ==
[~2021-06-11] MED LIST changes: +LEVOFLOXACIN500 MG PO; +TRAMADOL 50 MG50 MG PO
== END ==
LOC: SJCVCIMAG 09:03
PROVIDERS: ATTEND Internal Medicine
DX: I08.0 Rheumatic disorders of both mitral and aortic valves (principal); I11.9 Hypertensive heart disease without heart failure; R00.0 Tachycardia, unspecified; I49.3 Ventricular premature depolarization; R06.00 Dyspnea, unspecified; J44.9 Chronic obstructive pulmonary disease, unspecified; Z72.0 Tobacco use; Z88.0 Allergy status to penicillin; Z79.899 Other long term (current) drug therapy; Z82.49 Family history of ischemic heart disease and other diseases of the circulatory system